=== PATIENT | male | born 1995 | race Hispanic/Latino ===

== ENCOUNTER 2017-03-24 13:27 | Emergency (ER) | payer MEDICAID ==
[2017-03-24 16:20] LABS: Basophils % (Auto) 0.8 % (0.0-1.8); Hematocrit 45.2 % (35.5-45.6); Hemoglobin 14.9 gm/dl (11.8-15.2); Mean Corpuscular HGB Conc 33 % (32-34); Mean Corpuscular Hemoglobin 29 pg (28-32); Mean Corpuscular Volume 88 fl (84-94); Platelet Count 231 K/mm3 (140-440); Red Blood Count 5.11 M/mm3 (3.65-5.03); Red Cell Distribution Width 14.7 % (13.2-15.2); White Blood Count 7.4 K/mm3 (4.5-11.0)
[2017-03-24 16:29] LABS: Anion Gap 19 mmol/L; BUN/Creatinine Ratio 13.33; Blood Urea Nitrogen 12 mg/dL (9-20); Calcium 9.8 mg/dL (8.4-10.2); Carbon Dioxide 26 mmol/L (22-30); Glucose 97 mg/dL (75-100); Sodium 141 mmol/L (137-145)
[2017-03-24 16:50] LABS: Urine Drugs of Abuse Note Disclamer
[2017-03-24 17:17] LABS: Bilirubin,Urine NEG (Negative); Blood,Urine NEG (Negative); Ketones,Urine TR mg/dL (Negative); Leukocyte Esterase,Urine NEG (Negative); Mucus,Urine 2+ /HPF; Nitrite,Urine NEG (Negative); Protein,Urine <15 mg/dL mg/dL (Negative); Urobilinogen,Urine < 2.0 mg/dL (<2.0)
--- NOTE | 2017-03-24 22:15 | Emergency Department Report ---
ED Psych HPI - General Chief Complaint: Psych Stated Complaint: FRANTZ COX Time Seen by Provider: 03/24/17 21:12 Source: patient Mode of arrival: Ambulatory Limitations: No Limitations - History of Present Illness Initial Comments: 21-year-old male with a past medical history ADHD and bipolar disorder presents to the hospital complaining of suicidal ideation. Patient states he been feeling suicidal 1 week. He is angry at his family members and his parents. They are recently residing with his aunt and uncle and they have conflicts that exacerbate his suicidal thoughts. Today patient wrapped the chain around his face and reportedly stabbed himself with a steak. Patient denies stabbing himself with a steak but admits to the chain incident. History of suicide attempts in the past by using a brace at the [employer] up his arm as per patient. He also has always out of the hospital states he would not act upon the idea due to the consequences. He has no physical complaints at this time. He states that he occasionally hears voices and has been compliant with his psychiatric medication. - Related Data Allergies Allergy/AdvReac Type Severity Reaction Status Date / Time sulfamethoxazole Allergy Nausea Verified 12/30/13 11:15 [From ] trimethoprim [From ] Allergy Nausea Verified 12/30/13 11:15 ED Review of Systems ROS: Stated complaint: FRANTZ EVAL Other details as noted in HPI Comment: All other systems reviewed and negative Other: Constitutional: No fevers chills Eyes: No eye pain visual changes ENT: No ear pain or throat pain Neck: Denies pain Respiratory: Denies cough wheezing shortness of breath Cardiovascular: Denies chest pain, palpitations, syncope GI: Denies abdominal pain, nausea, vomiting, diarrhea : Denies dysuria Musculoskeletal: Denies back pain, joint swelling Skin: Denies rash, lesions, erythema Neurologic: Denies headache, numbness, weakness Psychiatric: As per HPI ED Past Medical Hx - Past Medical History Hx Psychiatric Treatment: Yes (ADHD Bipolar) - Surgical History Past Surgical History?: No - Social History Smoking Status: Never Smoker Substance Use Type: None ED Physical Exam - General Limitations: No Limitations - Other Other exam information: General: No limitations, patient is alert in no acute distress Head exam: Atraumatic, normocephalic Eyes exam: Normal appearance, pupils equal reactive to light, extraocular movements intact ENT: Moist mucous membrane, normal oropharynx Neck exam: Normal inspection, full range of motion, no meningismus nontender Respiratory exam: Clear to auscultation bilateral, no wheezes, rales, crackles Cardiovascular: Normal rate and rhythm, normal heart sounds Abdomen: Soft, nondistended, and nontender, with normal bowel sounds, no rebound, or guarding Extremity: Full range of motion normal inspection no deformity Back: Normal Inspection, full range of motion, no tenderness Neurologic: Alert, oriented x3, cranial nerves intact, no motor or sensory deficit Psychiatric: normal affect, normal mood Skin: Warm, dry, intact ED Course Vital Signs 03/24/17 15:23 Temperature 98.6 F Pulse Rate 77 Respiratory 20 Rate Blood Pressure 147/82 O2 Sat by Pulse 100 Oximetry ED Medical Decision Making - Lab Data Result diagrams: 03/24/17 15:50 03/24/17 15:50 Lab Results 03/24/17 03/24/17 03/24/17 Range/Units 15:50 15:50 15:50 WBC 7.4 (4.5-11.0) K/mm3 RBC 5.11 H (3.65-5.03) M/mm3 Hgb 14.9 (11.8-15.2) gm/dl Hct 45.2 (35.5-45.6) % MCV 88 (84-94) fl MCH 29 (28-32) pg MCHC 33 (32-34) % RDW 14.7 (13.2-15.2) % Plt Count 231 (140-440) K/mm3 Lymph % (Auto) 35.9 H (13.4-35.0) % [place] % (Auto) 6.5 (0.0-7.3) % Eos % (Auto) 1.0 (0.0-4.3) % Baso % (Auto) 0.8 (0.0-1.8) % Lymph # 2.7 (1.2-5.4) K/mm3 [place] # 0.5 (0.0-0.8) K/mm3 Eos # 0.1 (0.0-0.4) K/mm3 Baso # 0.1 (0.0-0.1) K/mm3 Seg Neutrophils % 55.8 (40.0-70.0) % Seg Neutrophils # 4.1 (1.8-7.7) K/mm3 Sodium 141 (137-145) mmol/L Potassium 4.0 (3.6-5.0) mmol/L Chloride 100.0 (98-107) mmol/L Carbon Dioxide 26 (22-30) mmol/L Anion Gap 19 mmol/L BUN 12 (9-20) mg/dL Creatinine 0.9 (0.8-1.5) mg/dL Estimated GFR > 60 ml/min BUN/Creatinine Ratio 13.33 % Glucose 97 (75-100) mg/dL Calcium 9.8 (8.4-10.2) mg/dL Urine Color (Yellow) Urine Turbidity (Clear) Urine pH (5.0-7.0) Ur Specific [place] (1.003-1.030) Urine Protein (Negative) mg/dL Urine Glucose (UA) (Negative) mg/dL Urine Ketones (Negative) mg/dL Urine Blood (Negative) Urine Nitrite (Negative) Urine Bilirubin (Negative) Urine Urobilinogen (<2.0) mg/dL Ur Leukocyte Esterase (Negative) Urine WBC (Auto) (0.0-6.0) /HPF Urine RBC (Auto) (0.0-6.0) /HPF U Epithel Cells (Auto) (0-13.0) /HPF Urine Mucus /HPF Urine Opiates Screen Urine Methadone Screen Ur Barbiturates Screen Ur Phencyclidine Scrn Ur Amphetamines Screen U Benzodiazepines Scrn Urine Cocaine Screen U Marijuana (THC) Screen Drugs of Abuse Note Plasma/Serum Alcohol < 0.01 (0-0.07) gm% 03/24/17 03/24/17 Range/Units 16:46 16:46 WBC (4.5-11.0) K/mm3 RBC (3.65-5.03) M/mm3 Hgb (11.8-15.2) gm/dl Hct (35.5-45.6) % MCV (84-94) fl MCH (28-32) pg MCHC (32-34) % RDW (13.2-15.2) % Plt Count (140-440) K/mm3 Lymph % (Auto) (13.4-35.0) % [place] % (Auto) (0.0-7.3) % Eos % (Auto) (0.0-4.3) % Baso % (Auto) (0.0-1.8) % Lymph # (1.2-5.4) K/mm3 [place] # (0.0-0.8) K/mm3 Eos # (0.0-0.4) K/mm3 Baso # (0.0-0.1) K/mm3 Seg Neutrophils % (40.0-70.0) % Seg Neutrophils # (1.8-7.7) K/mm3 Sodium (137-145) mmol/L Potassium (3.6-5.0) mmol/L Chloride (98-107) mmol/L Carbon Dioxide (22-30) mmol/L Anion Gap mmol/L BUN (9-20) mg/dL Creatinine (0.8-1.5) mg/dL Estimated GFR ml/min BUN/Creatinine Ratio % Glucose (75-100) mg/dL Calcium (8.4-10.2) mg/dL Urine Color Yellow (Yellow) Urine Turbidity Clear (Clear) Urine pH 6.0 (5.0-7.0) Ur Specific [place] 1.026 (1.003-1.030) Urine Protein <15 mg/dl (Negative) mg/dL Urine Glucose (UA) Neg (Negative) mg/dL Urine Ketones Tr (Negative) mg/dL Urine Blood Neg (Negative) Urine Nitrite Neg (Negative) Urine Bilirubin Neg (Negative) Urine Urobilinogen < 2.0 (<2.0) mg/dL Ur Leukocyte Esterase Neg (Negative) Urine WBC (Auto) 1.0 (0.0-6.0) /HPF Urine RBC (Auto) 1.0 (0.0-6.0) /HPF U Epithel Cells (Auto) < 1.0 (0-13.0) /HPF Urine Mucus 2+ /HPF Urine Opiates Screen Presumptive negative Urine Methadone Screen Presumptive negative Ur Barbiturates Screen Presumptive negative Ur Phencyclidine Scrn Presumptive negative Ur Amphetamines Screen Presumptive negative U Benzodiazepines Scrn Presumptive negative Urine Cocaine Screen Presumptive negative U Marijuana (THC) Screen Presumptive positive Drugs of Abuse Note Disclamer Plasma/Serum Alcohol (0-0.07) gm% - Medical Decision Making 1013 and transferred form signed. Patient medically clear for psychiatric transfer. - Differential Diagnosis suicidal, depression, psychosis Critical Care Time: No Critical care attestation.: If time is entered above; I have spent that time in minutes in the direct care of this critically ill patient, excluding procedure time. ED Disposition Clinical Impression: Suicidal ideation, Bipolar disorder, ADHD, Medical clearance for psychiatric admission, Marijuana use Disposition: DC/TX-65 PSY HOSP/PSY UNIT Is pt being admited?: No Does the pt Need Aspirin: No Condition: Stable Time of Disposition: 22:14 (awaiting acceptance)
[2017-03-25] MEDS ORDERED: TYLENOL PO PRN (05:02)
[2017-03-25] MEDS ORDERED: SYNTHROID PO SCH (06:00)
[2017-03-25] MEDS ORDERED: LISDEXAMFETAMINE DIMESYLATE 60 MG PO SCH (10:00)
[2017-03-25] MEDS ORDERED: ARIPIPRAZOLE 30 MG PO SCH (10:00)
[2017-03-25] MEDS ORDERED: OXCARBAZEPINE 600 MG PO SCH (10:00)
[2017-03-25] MEDS: ABILIFY PO SCH (10:25)
[2017-03-25] MEDS: TRILEPTAL PO SCH ×2 (10:25→22:50)
--- NOTE | 2017-03-25 13:05 | Consultation ---
History of Present Illness - Reason for Consult Consult date: 03/25/17 Reason for consult: Mental Health Evaluation Requesting physician: MACKENZIE RUDOLPH - Chief Complaint Chief complaint: "I am not suicidal" - History of Present Psychiatric Illness 21-year-old male with a past medical history ADHD and bipolar disorder presents to the hospital complaining of suicidal ideation. Today patient is calm and cooperative during assessment. He denies SI's on admission. He stated that he got into an argument with family and became angry. He acknowledged wrapping a rope around his wrist. He stated that he broke a stick across his arm and did not attempt to cut his wrist. The patient currently lives with his uncle and aunt along with his mom and dad. Patient admitted to cutting his wrist a year go to kill himself. He denies SI/HI's, AVH's and depression. He denies recreational drug use and alcohol consumption (etoh). Medications and Allergies Allergies Allergy/AdvReac Type Severity Reaction Status Date / Time sulfamethoxazole Allergy Nausea Verified 12/30/13 11:15 [From ] trimethoprim [From ] Allergy Nausea Verified 12/30/13 11:15 Home Medications Medication Instructions Recorded Confirmed Last Taken Type ARIPiprazole [Abilify TAB] 30 mg PO DAILY 03/24/17 03/24/17 03/24/17 History Divalproex ER [DepaKOTE ER] 1,500 mg PO QDAY 03/24/17 03/24/17 03/24/17 History Levothyroxine [Synthroid] 100 mcg PO QAM 03/24/17 03/24/17 03/24/17 History Lisdexamfetamine Dimesylate 60 mg PO DAILY 03/24/17 03/24/17 03/24/17 History [Vyvanse] OXcarbazepine [Oxcarbazepine] 600 mg PO BID 03/24/17 03/24/17 03/24/17 History Active Meds: Active Medications Acetaminophen (Tylenol) 650 mg PO Q4HR PRN PRN Reason: Pain MILD(1-3)/Fever >100.5/LEHMAN Aripiprazole (Abilify) 30 mg PO QDAY SHERIE Last Admin: 03/25/17 10:25 Dose: 30 mg Divalproex Sodium (Depakote Er) 1,500 mg PO QDAY SHERIE Last Admin: 03/25/17 10:25 Dose: 1,500 mg Levothyroxine Sodium (Synthroid) 100 mcg PO QAM@0600 [facility] Last Admin: 03/25/17 08:00 Dose: 100 mcg Miscellaneous Medication (Lisdexamfetamine Dimesylate [Vyvanse]) 60 mg PO DAILY [facility] Oxcarbazepine (Trileptal) 600 mg PO BID [facility] Last Admin: 03/25/17 10:25 Dose: 600 mg Past psychiatric history - Past Medical History Past Medical History: No medical history Past Surgical History: No surgical history - past Psychiatric treatment and history Psych: Bipolar psychiatric treatment history: Patient been inpatient psy services in the past. He denies a fam psy hx. - Social History Social history: lives with family ([employer] graduate) Mental Status Exam - Vital signs Last Vital Signs Temp 98.6 F 03/24/17 15:23 Pulse 80 03/25/17 08:00 Resp 19 03/25/17 08:00 BP 142/80 03/25/17 08:00 Pulse Ox 97 03/25/17 08:00 - Exam Narrative exam: ROS: (-) manic/psychotic MSE: Appearance: calm, cooperative Behavior: good eye contact Speech: regular rate and tone Mood: "I am fine"" Affect: labile Thought Process: circumstantial Thought Content: denies SI/HI's and AVH's Motor Activity: ambulatory Cognition: A/Ox 3 Insight: fair Judgment: limited Results Result Diagrams: 03/24/17 15:50 03/24/17 15:50 Abnormal lab results 03/24/17 Range/Units 15:50 RBC 5.11 H (3.65-5.03) M/mm3 Lymph % (Auto) 35.9 H (13.4-35.0) % All other labs normal. Assessment and Plan Assessment and plan: Impression: Historical Dx: Bipolar, ADHD. Today patient is calm and cooperative during assessment. Patient is impulsive. He denies SI/HI's. DDx: R/O Psychotic DO Recommendation/Plan: Continue 1013 with placement to psy services. Continue medication regimen. LFT's and [facility] ordered.
[2017-03-25 16:21] LABS: Alanine Aminotransferase 48 units/L (7-56); Alkaline Phosphatase 88 units/L (35-129)
[2017-03-26] MEDS: ABILIFY PO SCH (11:09)
[2017-03-26] MEDS: TRILEPTAL PO SCH (11:09)
[2017-03-26 16:32] VITALS: BP 163/86
--- NOTE | 2017-03-26 18:03 | Progress Note ---
Subjective - Reason for Consult Consult date: 03/26/17 Reason for consult: follow up - Chief Complaint Chief complaint: "I'm tired" 21-year-old male with a past medical history ADHD and bipolar disorder presented to the hospital complaining of suicidal ideation. Today patient is calm and cooperative during assessment. He denies SI's on admission. He is guarded and provided minimal information . He is expected to transfer to inpatient psych today. Mental Status Exam - Vital signs Last Vital Signs Temp 98.6 F 03/26/17 16:31 Pulse 96 H 03/26/17 16:31 Resp 18 03/26/17 16:31 BP 163/86 03/26/17 16:31 Pulse Ox 96 03/26/17 16:31 Assessment and Plan ROS: (-) manic/psychotic MSE: Appearance: calm, cooperative Behavior: good eye contact Speech: lregular rate and rhythm Mood: "I am fine"" Affect: labile Thought Process: limited in scope Thought Content: denies SI/HI's and AVH's Motor Activity: ambulatory Cognition: A/Ox 3 Insight: fair Judgment: limited Assessment and plan: Impression: Historical Dx: Bipolar, ADHD. Today patient is calm and cooperative during assessment. He denies SI/HI's. DDx: R/O Psychotic DO Recommendation/Plan: Continue 1013 with placement to psy services. Continue medication regimen.
== END 2017-03-26 16:31 ==
LOC: EEVIPCON 13:27 → ED 13:27
DX: F31.9 Bipolar disorder, unspecified (principal); R45.851 Suicidal ideations; F90.9 Attention-deficit hyperactivity disorder, unspecified type; F12.10 Cannabis abuse, uncomplicated; Z88.8 Allergy status to other drugs, medicaments and biological substances
CPT/HCPCS: 36415; 80048; 80164; 80307; 81001; 84075; 84450; 84460; 85025; 99285; G0480; 80320

== ENCOUNTER 2019-05-23 15:43 | Emergency (ER) | payer MEDICAID ==
[2019-05-23 15:51] VITALS: BP 152/86
--- NOTE | 2019-05-23 15:51 | Event Note ---
ED Screening Note Date of service: 05/23/19 Time: 15:46 ED Screening Note: 24 y o male presents for cc of shoulder pain. denies injuries or fall assessment/diagnostic orders/clinical plan/treatment(s) is/are subject to change based on patients health status, clinical progression and re-assessment by fellow clinical providers in the ED. Further treatment and workup at subsequent clinical providers discretion. Patient/guardian urged not to elope from the ED as their condition may be serious if not clinically assessed and managed. Initial orders include: ACC Eval
--- NOTE | 2019-05-23 16:16 | Emergency Department Report ---
Upper Extremity - HPI Chief Complaint: Shoulder Injury Stated Complaint: RT SHOULDER PAIN Time Seen by Provider: 05/23/19 15:45 Symptoms: Yes Pain with Movement, No Deformity, No Limited Range of Movement, No Numbness, No Weakness, No Swelling, No Bruising/Ecchymosis, No Laceration or Abrasion Other History: Patient is a 24-year-old male presents to the emergency room with complaints of right shoulder pain that began 3 days ago. He states he just woke up with it one morning after sleeping on a spring mattress. He denies any fall or injury or any previous injury of the shoulder. He denies any numbness or weakness. He does not report any other pain. Patient has past medical history of ADHD and bipolar. He states he has an allergy to Septra. ED Review of Systems ROS: Stated complaint: RT SHOULDER PAIN Other details as noted in HPI Comment: All other systems reviewed and negative ED Past Medical Hx - Past Medical History Previous Medical History?: Yes Hx Psychiatric Treatment: Yes (ADHD Bipolar) Additional medical history: Autism - Surgical History Past Surgical History?: No - Social History Smoking Status: Never Smoker Substance Use Type: None - Medications Home Medications: Home Medications Medication Instructions Recorded Confirmed Last Taken Type ARIPiprazole [Abilify TAB] 30 mg PO DAILY 03/24/17 03/24/17 03/24/17 History Divalproex ER [DepaKOTE ER] 1,500 mg PO QDAY 03/24/17 03/24/17 03/24/17 History Levothyroxine [Synthroid] 100 mcg PO QAM 03/24/17 03/24/17 03/24/17 History Lisdexamfetamine Dimesylate 60 mg PO DAILY 03/24/17 03/24/17 03/24/17 History [Vyvanse] OXcarbazepine [Oxcarbazepine] 600 mg PO BID 03/24/17 03/24/17 03/24/17 History Ibuprofen [Motrin 800 MG tab] 800 mg PO Q8HR PRN #14 tablet 05/23/19 Unknown Rx tiZANidine [Zanaflex 4mg TAB] 4 mg PO QHS PRN #7 tablet 05/23/19 Unknown Rx Upper Extremity Exam - Exam General: Vital signs noted. No distress. Alert and acting appropriately. Shoulder Exam: Yes Shoulder Tenderness (TTP over the right trapezius muscle, no bony TTP of the right shoulder, no sulcus sign, no obvious joint laxity), Yes Normal Range of Motion in Shoulder, No Clavicle Tenderness, No Shoulder Deformity, No AC Joint Tenderness Arm Exam: No Arm/Humerus Tenderness, No Arm Deformity Elbow: Yes Normal Range of Motion in Elbow, No Elbow Tenderness, No Elbow Deformity Forearm: No Forearm Tenderness, No Forearm Deformity Wrist: Yes Normal ROM in Wrist, No Wrist Tenderness, No Wrist Deformity, No Snuffbox Tenderness Hand: Yes Normal ROM in Digit(s), No Hand Tenderness, No Hand Deformity, No Digit Tenderness, No Digit(s) Deformity, No Tendon Dysfunction CMS Exam: Yes Normal Distal Pulses, Yes Normal Capillary Refill, Yes Normal Distal Sensation, No Broken Skin ED Course Vital Signs 05/23/19 15:48 Temperature 98.2 F Pulse Rate 77 Respiratory 18 Rate Blood Pressure 152/86 O2 Sat by Pulse 100 Oximetry ED Medical Decision Making - Medical Decision Making Patient is a 24-year-old male presents to the emergency room with complaints of right shoulder pain that began 3 days ago. He states he just woke up with it one morning after sleeping on a spring mattress. He denies any fall or injury or any previous injury of the shoulder. He denies any numbness or weakness. He does not report any other pain. Patient has past medical history of ADHD and bipolar. He states he has an allergy to Septra. on exam: TTP over the right trapezius muscle, no bony TTP of the right shoulder, no sulcus sign, no obvious joint laxity, FROM of the right shoulder, 2+ radial pulse, sensation intact. pt given prescription for anti-inflammatory and muscle relaxer for trapezius sprain. advised pt and mother to please take medications as prescribed. Do not drive or operate machinery while taking muscle relaxer. may use ice pack, heating pads, rest, epsom salt bath. Follow up with the primary care doctor in the next 2-3 days. Return to emergency room for any new or worsening symptoms. Critical care attestation.: If time is entered above; I have spent that time in minutes in the direct care of this critically ill patient, excluding procedure time. ED Disposition Clinical Impression: Strain of right trapezius muscle Qualifiers: Encounter type: initial encounter Qualified Code(s): S46.811A - Strain of other muscles, fascia and tendons at shoulder and upper arm level, right arm, initial encounter Disposition: DC-01 TO HOME OR SELFCARE Is pt being admited?: No Does the pt Need Aspirin: No Condition: Stable Instructions: Muscle Strain (ED) Additional Instructions: Please take medications as prescribed. Do not drive or operate machinery while taking muscle relaxer. may use ice pack, heating pads, rest, epsom salt bath. Follow up with the primary care doctor in the next 2-3 days. Return to emergency room for any new or worsening symptoms. Prescriptions: tiZANidine [Zanaflex 4mg TAB] 4 mg PO QHS PRN #7 tablet PRN Reason: Muscle Spasm Ibuprofen [Motrin 800 MG tab] 800 mg PO Q8HR PRN #14 tablet PRN Reason: pain Referrals: PRIMARY CARE, [Primary Care Provider] - 2-3 Days Forms: Accompanied Note Time of Disposition: 16:14 Print Language: ARMENIAN
== END 2019-05-23 16:47 | disposition home or self-care (01) ==
LOC: ED 15:43
DX: S46.811A Strain of other muscles, fascia and tendons at shoulder and upper arm level, right arm, initial encounter (principal); F90.9 Attention-deficit hyperactivity disorder, unspecified type; F31.9 Bipolar disorder, unspecified; F84.0 Autistic disorder; Z79.899 Other long term (current) drug therapy; Z88.2 Allergy status to sulfonamides; Z88.8 Allergy status to other drugs, medicaments and biological substances; X58.XXXA Exposure to other specified factors, initial encounter; Y93.89 Activity, other specified; Y92.89 Other specified places as the place of occurrence of the external cause; Y99.8 Other external cause status